=== PATIENT | male | born 1950 | race Caucasian/White ===

== ENCOUNTER 2022-03-12 09:58 | Emergency (ER) | payer OTHER, MEDICAID ==
[~2022-03-12] VITALS: Ht 157.5 cm; Wt 81.6 kg
--- NOTE | 2022-03-12 10:10 | NUR ---
RECEIVED PT ASSUMED CARE. PT BEING SEEN FOR R LOWER ABDOMEN PAIN 04/23. PT HAS HX OF PROTATE ENLARGEMENT AND UTI, FRANCO CATH ALREADY IN PLACE DRAINING CLEAR, YELLOW URINE. PT AAOX4. RESP E/U. NO RESP DISTRESS NOTE. ABDOMEN SOFT, MILD DISTENTION. PT AMBULATORY. SKIN INTACT. NO EDEMA. DAUGHTER AT BEDSIDE. SIDERAILS UP X2.
[2022-03-12 10:12] VITALS: BP_SYST 145
--- NOTE | 2022-03-12 10:42 | NUR ---
DR. DOE AT BEDSIDE TO ACCESS PT. IV CATH STARTED TO LFA 20G.
--- NOTE | 2022-03-12 10:54 | NUR ---
PT TAKEN FOR CT SCAN.
[2022-03-12] MEDS ORDERED: MORPHINE 4 MG INJ. 4 MG/ML VIAL IVP ONE (11:00)
--- NOTE | 2022-03-12 11:05 | NUR ---
PT BACK FROM CT SCAN.
--- NOTE | 2022-03-12 11:18 | NUR ---
BLOOD DRAW OBTAINED.
[2022-03-12 11:29] LABS: BASOPHILS # (AUTO) 0.1 K/uL (0.0-0.2); BASOPHILS % (AUTO) 1.5 % (0.0-2.0); EOSINOPHILS # (AUTO) 0.2 K/uL (0.0-0.4); EOSINOPHILS % (AUTO) 2.6 % (0.0-4.0); LYMPHOCYTES # (AUTO) 1.6 K/uL (1.0-5.5); LYMPHOCYTES % (AUTO) 23.2 % (20.5-51.5); MEAN CORPUSCULAR HEMOGLOBIN 26 pg (27-31); MEAN CORPUSCULAR HGB CONC 33 % (32-36); MEAN CORPUSCULAR VOLUME 78 fL (79.0-98.0); MONOCYTES # (AUTO) 0.7 K/uL (0.0-1.0); MONOCYTES % (AUTO) 10.3 % (1.7-9.3); NEUTROPHILS # (AUTO) 4.4 K/uL (1.8-7.7); NEUTROPHILS % (AUTO) 62.4 % (40.0-70.0); PLATELET COUNT (AUTO) 388 K/uL (130-430); RED BLOOD CELL COUNT(AUTO) 4.63 MIL/uL (4.2-6.2); RED CELL DISTRIBUTION WIDTH 16.1 % (9.0-15.0)
[2022-03-12 11:37] LABS: BILIRUBIN,URINE NEGATIVE (NEGATIVE); BLOOD, URINE NEGATIVE (NEGATIVE); CLARITY/URINE CLEAR (CLEAR); COLOR,URINE YELLOW (YELLOW); GLUCOSE,URINE NEGATIVE (NEGATIVE); KETONES,URINE NEGATIVE (NEGATIVE); LEUKOCYTE ESTERASE ,URINE TRACE (NEGATIVE); NITRITE, URINE NEGATIVE (NEGATIVE); PROTEIN URINE NEGATIVE (NEGATIVE); UROBILINOGEN,URINE 0.2 (0.2-1.0)
--- NOTE | 2022-03-12 11:39 | NUR ---
DR.. LUNDBERG AT BEDSIDE.
[2022-03-12 11:50] LABS: CALCIUM 9.1 mg/dL (8.4-11.0); CREATININE 0.71 mg/dL (0.55-1.30); POTASSIUM 3.7 mmol/L (3.5-5.1)
--- NOTE | 2022-03-12 11:50 | NUR ---
URINE AND DEDRA OBTAINED.
[2022-03-12 11:54] LABS: ALBUMIN 2.9 g/dL (3.4-4.8); TOTAL BILIRUBIN 0.3 mg/dL (0.0-1.0)
[2022-03-12 13:09] LABS: BACTERIA,URINE FEW /HPF (None Seen); RBC,URINE NONE SEEN /HPF (0-3); WBC,URINE 0-3 /HPF (0-3)
[2022-03-12] MEDS ORDERED: IBUP-1969 PO (13:16)
[2022-03-12] MEDS ORDERED: ACET-2634 PO (13:16)
[2022-03-12 13:50] VITALS: BP_SYST 145
--- NOTE | 2022-03-12 13:53 | NUR ---
Patient given written and verbal discharge instructions and verbalizes understanding. ER MD discussed with patient the results and treatment provided. Patient in stable condition. ID arm band removed. IV catheter removed intact and dressing applied, no active bleeding. Rx of IBUROPONE, ACETAINOPHEN given. Patient educated on pain management and to follow up with PMD. Pain Scale 0/10 . Opportunity for questions provided and answered. Medication side effect fact sheet provided.
== END 2022-03-12 13:53 | disposition home or self-care (01) ==
LOC: SED 09:58
DX: R10.31 Right lower quadrant pain (principal); R33.9 Retention of urine, unspecified; Z79.899 Other long term (current) drug therapy; Z20.822 Contact with and (suspected) exposure to COVID-19
CPT/HCPCS: 99284; 74176; 96374; 87426; 80053; 81000; 83690; 85025; 87040; 36415; 76376; 83605; J2270